=== PATIENT | female | born 1970 | race Caucasian/White ===

== ENCOUNTER → 2020-02-02 | Outpatient (CLI) | payer OTHER, SELFPAY ==
--- NOTE | 2020-02-04 07:29 | REP ---
INDICATION: N97.9 FEMALE INFERTILITY COMPARISON: None. TECHNIQUE: Transabdominal pelvic ultrasound followed by transvaginal examination for better evaluation of the endometrium and adnexa with color Doppler evaluation of the ovaries. FINDINGS: Bladder is unremarkable and measures 15.1 x 10.3 x 7.1 cm (578 cc). Heterogeneous anteverted uterus measures 10.2 x 5.2 x 6.4 cm with few subcentimeter nabothian cysts noted. The endometrial complex measures 8.5 mm thickness. Right ovary measures 3.1 x 1.3 x 1.7 cm with 1.4 x 1.2 x 0.9 cm para ovarian cyst versus focal fluid. Left ovary measures 3.2 x 1.8 x 2.3 cm with 1.5 cm dominant follicle; R I = 0.52. IMPRESSION: 1. Relatively normal appearance to the uterus with subcentimeter nabothian cyst suggested. 2. 1.5 cm dominant follicle in left ovary. 3. Small anechoic structure adjacent to the right ovary may represent paraovarian cyst or small focal fluid collection. Finding is essentially benign and likely insignificant. <Electronically signed by Armando Pike > 02/04/20 [id number]
== END ==
LOC: M WHC 15:00
PROVIDERS: ATTEND Obstetrics & Gynecology
DX: N97.9 Female infertility, unspecified (principal); N88.8 Other specified noninflammatory disorders of cervix uteri

== ENCOUNTER → 2020-02-07 | Outpatient (CLI) | payer OTHER, SELFPAY ==
--- NOTE | 2020-03-02 11:56 | REPMRS ---
Patient History The patient states she had a clinical breast exam in 2019. Patient is nulliparous. Family history of colorectal cancer in paternal grandfather. Digital Woman Screen Mammo: February 07, 2020 - Exam #: [id number] Bilateral CC and MLO view(s) were taken. Technologist: Sabina Bragg, Technologist Prior study comparison: August 19, 2018, bilateral digital mammo screening bilat, performed at [facility]. FINDINGS: There are scattered fibroglandular densities. The Volpara volumetric breast density category is:B. There has been no change in the appearance of the mammogram from the prior studies. There is a mild amount of scattered fibroglandular density which is fairly symmetric. There is no interval development of dominant mass, architectural distortion, or grouped microcalcification suggestive of malignancy. 3-D tomosynthesis shows no additional findings. Assessment: BI-RADS/ACR category 1 mammogram. Negative Mammogram. Recommendation Routine screening mammogram of both breasts in 1 year (for women over age 40). This patient's [facility] Lifetime Breast Cancer Risk is estimated at 13.5 %. This mammogram was interpreted with the aid of an FDA-approved computer-aided dectection system. Electronically Signed By: Main Langley MD 03/02/20 [id number]
== END ==
LOC: M WHC 14:46
PROVIDERS: ATTEND Nurse Practitioner Family
DX: Z12.31 Encounter for screening mammogram for malignant neoplasm of breast (principal)

== ENCOUNTER → 2020-06-27 | Outpatient (REF) | payer OTHER ==
[2020-06-27 11:37] LABS: HEMATOCRIT 38.8 % (36.0-47.0); HEMOGLOBIN 12.9 g/dl (12.0-15.5); MEAN CORPUSCULAR HEMOGLOBIN 31.5 pg (27.0-33.0); MEAN CORPUSCULAR HGB CONC 33.2 g/dl (32.0-36.5); MEAN CORPUSCULAR VOLUME 94.6 fl (80.0-96.0); PLATELET COUNT, AUTOMATED 363 10^3/uL (150-450); WHITE BLOOD COUNT 6.8 10^3/uL (4.0-10.0)
[2020-06-27 11:43] LABS: HEMATOCRIT 38.8 % (36.0-47.0)
[2020-06-27 13:45] LABS: PERCENT SATURATION 16.3 % (13.2-45.0)
[2020-06-27 13:46] LABS: TOTAL 25(OH) VITAMIN D 24.3 NG/ML (30.0-100.0)
== END ==
LOC: M SFHCPLAZ 08:10
PROVIDERS: ATTEND Family Medicine
DX: Z86.2 Personal history of diseases of the blood and blood-forming organs and certain disorders involving the immune mechanism (principal); E55.9 Vitamin D deficiency, unspecified

== ENCOUNTER → 2020-06-27 | Outpatient (CLI) | payer OTHER | LOC: M PLALAB 08:10 | PROVIDERS: ATTEND Allergy & Immunology Allergy | DX: J30.1 Allergic rhinitis due to pollen (principal) ==

== ENCOUNTER → 2020-12-14 | Outpatient (CLI) | payer OTHER ==
--- NOTE | 2020-12-14 16:10 | REPVR ---
PROCEDURE INFORMATION: Exam: MR Lumbar Spine Without Contrast Exam date and time: 12/14/2020 3:36 PM Age: 50 years old Clinical indication: Pain; Lumbago with sciatica; Right; Additional info: RT leg numbness TECHNIQUE: Imaging protocol: Multiplanar magnetic resonance images of the lumbar spine without intravenous contrast. COMPARISON: PELVIS NON-OB COMPLETE US 02/02/2020 3:09 PM FINDINGS: Vertebral body heights are maintained. Slight straightening of the lumbar lordosis. Degenerative disc height loss at L5-S1. Mild Schmorl's node along the superior endplate of L2. No abnormal marrow signal. No cord compression. No abnormal cord signal. Conus medullaris terminates at the L1 level. Paravertebral soft tissues are unremarkable. L1-L2: Slight broad-based disc bulge without significant canal or foraminal narrowing. L2-L3: No significant canal or foraminal narrowing. L3-L4: No significant canal or foraminal narrowing. L4-L5: No significant canal or foraminal narrowing. L5-S1: Right paracentral disc extrusion effacing the right lateral recess and compressing the traversing right S1 nerve root. Mild right foraminal narrowing. IMPRESSION: Right paracentral disc extrusion at L5-S1 compressing the traversing right S1 nerve root. Recommend surgical consultation. Electronically signed by: Luis Enrique Ward On 12/14/2020 16:10:10 PM
== END ==
LOC: M PLARAD 14:43
PROVIDERS: ATTEND Family Medicine
DX: R20.0 Anesthesia of skin (principal)

== ENCOUNTER → 2020-12-24 | Outpatient (CLI) | payer OTHER ==
--- NOTE | 2020-12-24 13:31 | REP ---
INDICATION: RADICULOPATHY. COMPARISON: None. TECHNIQUE: AP, lateral, and coned-down views of the lumbosacral spine. FINDINGS: Alignment and lordosis maintained. No acute fracture/compression injury or subluxation. Small chronic Schmorl's node along the superior endplate of L2. Multilevel endplate sclerosis and small marginal spurring is appreciated along with facet hypertrophy. There is disc space narrowing at the L5-S1 level and L1-2 level. IMPRESSION: Degenerative spondylosis primarily involving L1-2 and L5-S1. <Electronically signed by Armando Pike > 12/24/20 [id number]
== END ==
LOC: M SOG 13:12
PROVIDERS: ATTEND Orthopaedic Surgery
DX: M51.16 Intervertebral disc disorders with radiculopathy, lumbar region (principal)

== ENCOUNTER → 2020-12-31 | Outpatient (CLI) | payer OTHER | LOC: M PLALAB 14:59 | PROVIDERS: ATTEND Family Medicine | DX: E55.9 Vitamin D deficiency, unspecified (principal) ==

== ENCOUNTER → 2021-03-27 | Outpatient (REF) | LOC: M LABSMTC 10:33 | PROVIDERS: ATTEND Pediatrics | DX: Z11.52 Encounter for screening for COVID-19 (principal) ==

== ENCOUNTER → 2022-01-08 | Outpatient (CLI) | payer OTHER | LOC: M WUC 15:48 | PROVIDERS: ATTEND Physician Assistant | DX: S39.012A Strain of muscle, fascia and tendon of lower back, initial encounter (principal) ==

== ENCOUNTER → 2022-03-05 | Outpatient (CLI) | payer OTHER ==
[~2022-03-05] MED LIST: XANA0.25 PO
== END ==
LOC: M RAD 16:29
PROVIDERS: ATTEND Physician Assistant
DX: M54.59 Other low back pain (principal)

== ENCOUNTER 2022-06-04 08:26 | Inpatient (IN) | payer OTHER ==
[~2022-06-04] VITALS: Ht 175.3 cm; Wt 102.6 kg
[2022-06-04] MEDS ORDERED: ZOLO100T PO (08:41)
[2022-06-04] MEDS ORDERED: WELLTAB40 PO (08:41)
[2022-06-04] MEDS ORDERED: SERTRALINE HCL 50 MG TAB PO SCH (09:00)
[2022-06-04] MEDS ORDERED: NICOTINE 14 MG/24 HR TRANSDERMAL TD SCH (09:00)
[2022-06-04 10:34] LABS: HEMATOCRIT 39.6 % (36.0-47.0); HEMOGLOBIN 13.3 g/dl (12.0-15.5); MEAN CORPUSCULAR HEMOGLOBIN 33.2 pg (27.0-33.0); MEAN CORPUSCULAR HGB CONC 33.6 g/dl (32.0-36.5); MEAN CORPUSCULAR VOLUME 98.8 fl (80.0-96.0); PLATELET COUNT, AUTOMATED 359 10^3/uL (150-450); RED BLOOD COUNT 4.01 10^6/uL (4.00-5.40); WHITE BLOOD COUNT 8.9 10^3/uL (4.0-10.0)
[2022-06-04 11:01] LABS: ETHYL ALCOHOL (ETHANOL) 0.003 % (0.000-0.010)
[2022-06-04 11:02] LABS: ACETAMINOPHEN LEVEL < 2.0 UG/ML (10.0-20.0)
[2022-06-04 11:03] LABS: SALICYLATE LEVEL < 3.0 MG/DL (<30)
[2022-06-04 11:06] LABS: ALKALINE PHOSPHATASE 76 U/L (46-116); ALT/SGPT 33 U/L (7.0-40); AST/SGOT 28 U/L (<34); BILIRUBIN,DIRECT 0.1 MG/DL (<0.4); BILIRUBIN,TOTAL 0.4 MG/DL (0.3-1.2); BLOOD UREA NITROGEN 17 MG/DL (9-23); CALCIUM LEVEL 9.2 MG/DL (8.5-10.1); CARBON DIOXIDE LEVEL 27 MMOL/L (20-31); CHLORIDE LEVEL 105 MMOL/L (98-107); CREATININE FOR GFR 0.83 MG/DL (0.55-1.30); GLOMERULAR FILTRATION RATE > 60.0 (>51); GLUCOSE, FASTING 100 MG/DL (60-100); POTASSIUM SERUM 4.4 MMOL/L (3.5-5.1); SODIUM LEVEL 138 MMOL/L (136-145); THYROID STIMULATING HORMONE 0.536 uIU/ML (0.55-4.78); TOTAL PROTEIN 7.3 G/DL (5.7-8.2)
[2022-06-04 11:10] LABS: AMPHETAMINES LEVEL URINE NEGATIVE (NEGATIVE); BARBITURATES URINE NEGATIVE (NEGATIVE); BENZODIAZEPINES URINE NEGATIVE (NEGATIVE); CANNABINOIDS URINE NEGATIVE (NEGATIVE); COCAINE METABOLITE URINE NEGATIVE (NEGATIVE); METHADONE URINE NEGATIVE (NEGATIVE); OPIATES URINE NEGATIVE (NEGATIVE); PHENCYCLIDINE URINE NEGATIVE (NEGATIVE)
[2022-06-04] MEDS ORDERED: IBUPROFEN 400MG TAB PO PRN (14:25)
[2022-06-04] MEDS ORDERED: traZODone 50 MG TAB PO PRN (14:25)
[2022-06-04] MEDS ORDERED: MOM 30ML SUSPENSION UDC PO PRN (14:25)
[2022-06-04] MEDS ORDERED: diphenhydrAMINE 25MG CAP PO PRN (14:25)
[2022-06-04 15:28] VITALS: BP 144/83
[2022-06-04] MEDS ORDERED: CETI-24 PO (19:01)
[2022-06-04] MEDS ORDERED: FLUTISP NARES (19:01)
[2022-06-04] MEDS ORDERED: FLUT1BLS3 INH (19:01)
[2022-06-04] MEDS ORDERED: HOME MED LIST COMPLETE! XX SCH (19:05)
[2022-06-04] MEDS: CETIRIZINE (ZyrTEC) 10 MG TAB PO SCH (21:29)
[2022-06-04] MEDS: FLUTICASONE PROP 0.05% NASAL SPRAY 16 GM (FLONASE) NARES SCH (21:29)
[2022-06-04] MEDS: ADVAIR HFA 230/21MCG INHALER INH SCH (21:32)
[2022-06-05 06:57] VITALS: BP 135/77
[2022-06-05] MEDS: CETIRIZINE (ZyrTEC) 10 MG TAB PO SCH ×2 (08:57→20:12)
[2022-06-05] MEDS: FLUTICASONE PROP 0.05% NASAL SPRAY 16 GM (FLONASE) NARES SCH ×2 (08:57→20:13)
[2022-06-05] MEDS: ADVAIR HFA 230/21MCG INHALER INH SCH ×2 (08:57→20:11)
[2022-06-05] MEDS: SERTRALINE HCL 50 MG TAB PO SCH (08:58)
[2022-06-05] MEDS: buPROPion **XL** TABLET 150MG (WELLBUTRIN XL) PO SCH (08:58)
[2022-06-05] MEDS: clonazePAM 0.5 MG TAB PO SCH ×2 (08:58→20:12)
[2022-06-05] MEDS ORDERED: buPROPion **XL** TABLET 150MG (WELLBUTRIN XL) PO SCH (09:00)
[2022-06-05] MEDS ORDERED: FLUTICASONE PROP 0.05% NASAL SPRAY 16 GM (FLONASE) NARES SCH (09:00)
[2022-06-05 18:19] VITALS: BP 152/78
[2022-06-06] MEDS: buPROPion **XL** TABLET 150MG (WELLBUTRIN XL) PO SCH (06:02)
[2022-06-06 06:37] VITALS: BP 122/59
[2022-06-06] MEDS: SERTRALINE HCL 50 MG TAB PO SCH (08:27)
[2022-06-06] MEDS: clonazePAM 0.5 MG TAB PO SCH ×2 (08:28→21:00)
[2022-06-06] MEDS: CETIRIZINE (ZyrTEC) 10 MG TAB PO SCH ×2 (08:28→21:00)
[2022-06-06] MEDS: FLUTICASONE PROP 0.05% NASAL SPRAY 16 GM (FLONASE) NARES SCH ×2 (08:28→20:59)
[2022-06-06] MEDS: ADVAIR HFA 230/21MCG INHALER INH SCH ×2 (08:29→21:00)
[2022-06-06 10:45] VITALS: BP 137/79
[2022-06-06] MEDS ORDERED: MECLIZINE 25 MG TABLET PO PRN (10:55)
[2022-06-06 17:59] VITALS: BP 160/90
[2022-06-06] MEDS: MAALOX 30 ML SUSP *UDC PO PRN (18:45)
[2022-06-06] MEDS ORDERED: ANALGESIC BALM CRM 3OZ TOP PRN (21:45)
[2022-06-06] MEDS: DICLOFENAC EPOLAMINE 1.3% PATCH TOP SCH (22:35)
[2022-06-07 06:01] VITALS: BP 141/78
[2022-06-07] MEDS: buPROPion **XL** TABLET 150MG (WELLBUTRIN XL) PO SCH (06:16)
[2022-06-07] MEDS: SERTRALINE HCL 50 MG TAB PO SCH (08:40)
[2022-06-07] MEDS: CETIRIZINE (ZyrTEC) 10 MG TAB PO SCH ×2 (08:40→21:57)
[2022-06-07] MEDS: clonazePAM 0.5 MG TAB PO SCH ×2 (08:40→21:56)
[2022-06-07] MEDS: ADVAIR HFA 230/21MCG INHALER INH SCH ×2 (08:41→21:56)
[2022-06-07] MEDS: FLUTICASONE PROP 0.05% NASAL SPRAY 16 GM (FLONASE) NARES SCH ×2 (08:41→21:56)
[2022-06-07] MEDS: DICLOFENAC EPOLAMINE 1.3% PATCH TOP SCH ×2 (08:42→21:57)
[2022-06-07 17:11] LABS: BLOOD UREA NITROGEN 16 MG/DL (9-23); CALCIUM LEVEL 8.9 MG/DL (8.5-10.1); CARBON DIOXIDE LEVEL 29 MMOL/L (20-31); CHLORIDE LEVEL 105 MMOL/L (98-107); CREATININE FOR GFR 0.85 MG/DL (0.55-1.30); GLOMERULAR FILTRATION RATE > 60.0 (>51); GLUCOSE, FASTING 106 MG/DL (60-100); MAGNESIUM LEVEL 1.9 MG/DL (1.8-2.4); SODIUM LEVEL 140 MMOL/L (136-145)
[2022-06-08 05:58] VITALS: BP 136/84
[2022-06-08] MEDS: buPROPion **XL** TABLET 150MG (WELLBUTRIN XL) PO SCH (06:11)
[2022-06-08] MEDS: DICLOFENAC EPOLAMINE 1.3% PATCH TOP SCH ×2 (08:24→20:26)
[2022-06-08] MEDS: SERTRALINE HCL 50 MG TAB PO SCH (08:24)
[2022-06-08] MEDS: CETIRIZINE (ZyrTEC) 10 MG TAB PO SCH ×2 (08:24→20:25)
[2022-06-08] MEDS: clonazePAM 0.5 MG TAB PO SCH ×2 (08:24→20:25)
[2022-06-08] MEDS: FLUTICASONE PROP 0.05% NASAL SPRAY 16 GM (FLONASE) NARES SCH ×2 (08:25→20:25)
[2022-06-08] MEDS: ADVAIR HFA 230/21MCG INHALER INH SCH ×2 (08:25→20:25)
[2022-06-08] MEDS: MAALOX 30 ML SUSP *UDC PO PRN (10:16)
[2022-06-08 18:22] VITALS: BP 130/81
[2022-06-09] MEDS: buPROPion **XL** TABLET 150MG (WELLBUTRIN XL) PO SCH (06:01)
[2022-06-09 06:20] VITALS: BP 131/74
[2022-06-09] MEDS: DICLOFENAC EPOLAMINE 1.3% PATCH TOP SCH ×2 (08:54→09:01)
[2022-06-09] MEDS: ADVAIR HFA 230/21MCG INHALER INH SCH ×2 (08:54→21:00)
[2022-06-09] MEDS: FLUTICASONE PROP 0.05% NASAL SPRAY 16 GM (FLONASE) NARES SCH ×2 (08:56→21:01)
[2022-06-09] MEDS: CETIRIZINE (ZyrTEC) 10 MG TAB PO SCH ×2 (08:57→21:01)
[2022-06-09] MEDS: clonazePAM 0.5 MG TAB PO SCH ×2 (08:57→21:01)
[2022-06-09] MEDS: SERTRALINE HCL 50 MG TAB PO SCH (08:57)
[2022-06-09 18:55] VITALS: BP 157/74
[2022-06-10 06:38] VITALS: BP 121/58
[2022-06-10] MEDS: buPROPion **XL** TABLET 150MG (WELLBUTRIN XL) PO SCH (07:07)
[2022-06-10] MEDS: ADVAIR HFA 230/21MCG INHALER INH SCH (08:45)
[2022-06-10] MEDS: CETIRIZINE (ZyrTEC) 10 MG TAB PO SCH (08:47)
[2022-06-10] MEDS: SERTRALINE HCL 50 MG TAB PO SCH (08:47)
[2022-06-10] MEDS: FLUTICASONE PROP 0.05% NASAL SPRAY 16 GM (FLONASE) NARES SCH (08:47)
[2022-06-10] MEDS: clonazePAM 0.5 MG TAB PO SCH (08:47)
[2022-06-10] MEDS ORDERED: CLON0.5T2 PO (09:44)
[2022-06-10] MEDS ORDERED: SERT50TA29 PO (09:44)
== END 2022-06-10 12:47 | disposition home or self-care (01) | DRG 880 ==
LOC: M ED 08:26 → M ED INP 14:23 → M PSY 15:23
PROVIDERS: ADMIT Student in an Organized Health Care Education/Training Program; ATTEND Student in an Organized Health Care Education/Training Program
DX: F41.0 Panic disorder [episodic paroxysmal anxiety] (principal); R45.851 Suicidal ideations; F41.1 Generalized anxiety disorder; F43.10 Post-traumatic stress disorder, unspecified; F42.8 Other obsessive-compulsive disorder; F60.89 Other specific personality disorders; R73.03 Prediabetes; J45.909 Unspecified asthma, uncomplicated; Z86.16 Personal history of COVID-19; Z81.8 Family history of other mental and behavioral disorders; Z79.899 Other long term (current) drug therapy; Z88.4 Allergy status to anesthetic agent; Z88.1 Allergy status to other antibiotic agents; Z63.5 Disruption of family by separation and divorce; Z62.811 Personal history of psychological abuse in childhood

== ENCOUNTER 2022-07-09 11:00 | Day surgery (SDC) | payer OTHER ==
[~2022-07-09] VITALS: Ht 175.3 cm; Wt 100.4 kg
[~2022-07-09 11:00] MED LIST changes: +CETI-24 PO; +CLON0.5T2 PO; +FLUT1BLS3 INH; +FLUT50SP17 NARES; +SERT50TA29 PO; +WELLTAB40 PO; +ZOLO100T PO
[2022-07-09] MEDS ORDERED: fentaNYL 100 MCG/2 ML INJECTION As Ordered ONE (12:42)
[2022-07-09] MEDS ORDERED: propofoL 200 MG/20 ML VIAL As Ordered ONE ×2 (12:42→12:54)
[2022-07-09 13:25] VITALS: BP 103/67
== END 2022-07-09 13:56 | disposition home or self-care (01) ==
LOC: M OPP 11:00
PROVIDERS: ATTEND Surgery
DX: Z12.11 Encounter for screening for malignant neoplasm of colon (principal); K64.1 Second degree hemorrhoids; K29.70 Gastritis, unspecified, without bleeding; R13.10 Dysphagia, unspecified
CPT/HCPCS: 43239; 88305; G0121; J3010

== ENCOUNTER → 2022-07-15 | Outpatient (CLI) | payer OTHER ==
[2022-07-15 18:32] LABS: BASO # 0.1 10^3/uL (0.0-0.2); BASO % 1.1 % (0.0-1.0); EOS # 0.3 10^3/uL (0.0-0.5); EOS % 3.5 % (0.0-3.0); HEMATOCRIT 39.7 % (36.0-47.0); HEMOGLOBIN 13.3 g/dl (12.0-15.5); LYMPH # 2.7 10^3/uL (1.5-5.0); LYMPH % 33.7 % (24.0-44.0); MEAN CORPUSCULAR HEMOGLOBIN 33.2 pg (27.0-33.0); MEAN CORPUSCULAR HGB CONC 33.5 g/dl (32.0-36.5); MONO # 0.6 10^3/uL (0.0-0.8); MONO % 7.2 % (2.0-8.0); NEUTROPHILS # 4.4 10^3/uL (1.5-8.5); NEUTROPHILS % 54.3 % (36.0-66.0); PLATELET COUNT, AUTOMATED 303 10^3/uL (150-450); RED BLOOD COUNT 4.01 10^6/uL (4.00-5.40); WHITE BLOOD COUNT 8.1 10^3/uL (4.0-10.0)
[2022-07-15 18:40] LABS: ALBUMIN 3.9 G/DL (3.2-5.2); BILIRUBIN,TOTAL 0.5 MG/DL (0.3-1.2); CALCIUM LEVEL 8.4 MG/DL (8.5-10.1); CHOLESTEROL RISK RATIO 4.22 (<5); CREATININE FOR GFR 1.32 MG/DL (0.55-1.30); FOLLICLE STIMULATING HORMONE 15.2 mIU/ML; FREE T4 1.1 NG/DL (0.89-1.76); GLOMERULAR FILTRATION RATE 45.4 (>51); LDL CHOLESTEROL 136.8 MG/DL (<100); LUTEINIZING HORMONE 7.5 mIU/ML; POTASSIUM SERUM 4.1 MMOL/L (3.5-5.1); THYROID STIMULATING HORMONE 1.257 uIU/ML (0.55-4.78); TOTAL PROTEIN 6.9 G/DL (5.7-8.2)
[2022-07-15 18:41] LABS: TOTAL 25(OH) VITAMIN D 23.6 NG/ML (20.0-100.0)
[2022-07-15 20:22] LABS: HEMOGLOBIN A1c 5.3 % (4.0-6.0)
== END ==
LOC: M PLALAB 14:48
PROVIDERS: ATTEND Physician Assistant
DX: R94.6 Abnormal results of thyroid function studies (principal)

== ENCOUNTER → 2022-07-31 | Outpatient (REF) | payer OTHER | LOC: M SFHCWAGY 10:16 | PROVIDERS: ATTEND Nurse Practitioner Family | DX: Z12.4 Encounter for screening for malignant neoplasm of cervix (principal) ==

== ENCOUNTER → 2022-07-31 | Outpatient (CLI) | payer OTHER | LOC: M WHC 15:14 | PROVIDERS: ATTEND Nurse Practitioner Family | DX: Z12.31 Encounter for screening mammogram for malignant neoplasm of breast (principal); R92.8 Other abnormal and inconclusive findings on diagnostic imaging of breast | CPT/HCPCS: 77063; 77067; G0463 ==

== ENCOUNTER → 2022-08-07 | Outpatient (CLI) | payer OTHER | LOC: M PLARAD 11:03 | PROVIDERS: ATTEND Physician Assistant | DX: M25.431 Effusion, right wrist (principal) ==

== ENCOUNTER → 2022-08-22 | Outpatient (CLI) | payer OTHER ==
[~2022-08-22] MED LIST changes: +E-Z-GAS II EFFERVESCENT PACKET (SODIUM BICARB./CITRIC ACID/SIMETHICONE) As Ordered ONE; +E-Z-HD 98% w/w 340GM SUSP BTL As Ordered ONE; +E-Z-PAQUE 96% w/w SUSP 176GM BTL As Ordered ONE
== END ==
LOC: M RAD 09:08
PROVIDERS: ATTEND Physician Assistant
DX: R13.10 Dysphagia, unspecified (principal); R49.0 Dysphonia

== ENCOUNTER → 2022-08-25 | Outpatient (CLI) | payer OTHER ==
[~2022-08-25] MED LIST changes: -E-Z-GAS II EFFERVESCENT PACKET (SODIUM BICARB./CITRIC ACID/SIMETHICONE) As Ordered ONE; -E-Z-HD 98% w/w 340GM SUSP BTL As Ordered ONE; -E-Z-PAQUE 96% w/w SUSP 176GM BTL As Ordered ONE
[2022-08-25 16:09] LABS: BASO # 0.1 10^3/uL (0.0-0.2); EOS # 0.2 10^3/uL (0.0-0.5); EOS % 2.9 % (0.0-3.0); HEMATOCRIT 39.9 % (36.0-47.0); HEMOGLOBIN 13.3 g/dl (12.0-15.5); LYMPH # 2.5 10^3/uL (1.5-5.0); LYMPH % 30.8 % (24.0-44.0); MEAN CORPUSCULAR HEMOGLOBIN 32.9 pg (27.0-33.0); MEAN CORPUSCULAR HGB CONC 33.3 g/dl (32.0-36.5); MEAN CORPUSCULAR VOLUME 98.8 fl (80.0-96.0); MONO # 0.4 10^3/uL (0.0-0.8); MONO % 5.3 % (2.0-8.0); NEUTROPHILS # 4.8 10^3/uL (1.5-8.5); NEUTROPHILS % 59.4 % (36.0-66.0); PLATELET COUNT, AUTOMATED 341 10^3/uL (150-450); RED BLOOD COUNT 4.04 10^6/uL (4.00-5.40); WHITE BLOOD COUNT 8.1 10^3/uL (4.0-10.0)
[2022-08-25 16:19] LABS: ERYTHROCYTE SEDIMENTATION RATE 43 mm/hr (0-30)
[2022-08-25 18:20] LABS: C REACTIVE PROTEIN QUANTITATIV 0.7 MG/DL (<1.0)
[2022-08-25 18:21] LABS: RHEUMATOID FACTOR QUANT 5.8 IU/ML (<14)
== END ==
LOC: M PLALAB 13:12
PROVIDERS: ATTEND Physician Assistant
DX: G56.03 Carpal tunnel syndrome, bilateral upper limbs (principal)

== ENCOUNTER → 2022-08-28 | Outpatient (CLI) | payer OTHER | LOC: M WHC 10:08 | PROVIDERS: ATTEND Nurse Practitioner Family | DX: Z12.31 Encounter for screening mammogram for malignant neoplasm of breast (principal) | CPT/HCPCS: 76642; 77065; G0279 ==